=== PATIENT | female | born 1935 | race Caucasian/White ===

== ENCOUNTER 2023-03-02 07:04 | Day surgery (SDC) | payer BC ==
[~2023-03-02] VITALS: Ht 154.9 cm; Wt 98.9 kg
[~2023-03-02 07:04] MED LIST: ACETAMINOPHEN 500 MG TABLET PO ONE; CEFAZOLIN SOD 2 GM in D5W 50 ML IV ONE; CELECOXIB 200 MG CAPSULE PO ONE; GABAPENTIN 400 MG CAPSULE PO ONE; ONDANSETRON 4 MG ODT TAB PO ONE; SCOPOLAMINE HYDROBROMIDE 1 MG PATCH .72 H (TRANSDERM-SCOP) TD ONE; VANCOMYCIN HCL 1,500 MG in NS 250 ML IV ONE; oxyCODONE HCL 10 MG TAB.ER.12H PO ONE
[2023-03-02] MEDS ORDERED: ACETAMINOPHEN 500 MG TABLET ONE (07:30)
[2023-03-02] MEDS ORDERED: SCOPOLAMINE HYDROBROMIDE 1 MG PATCH .72 H (TRANSDERM-SCOP) TD ONE (07:31)
[2023-03-02] MEDS ORDERED: CELECOXIB 200 MG CAPSULE ONE (07:37)
[2023-03-02] MEDS ORDERED: oxyCODONE HCL 10 MG TAB.ER.12H PO ONE (08:37)
[2023-03-02] MEDS ORDERED: WATER FOR IRRIGATION,STERILE 1,000 ML IRRIG.SOLN IR ONE (10:28)
[2023-03-02] MEDS ORDERED: PROPOFOL 200MG/ 20ML VIAL (DIPRIVAN) IV ONE (10:28)
[2023-03-02] MEDS ORDERED: ONDANSETRON HCL 4 MG/2 ML VIAL ONE (10:28)
[2023-03-02] MEDS ORDERED: EPINEPHrine HCL 1 MG/ML VIAL ONE (10:28)
[2023-03-02] MEDS ORDERED: LR 1,000 ML IV.SOLN IV ONE (10:28)
[2023-03-02] MEDS ORDERED: VANCOMYCIN HCL 1000 MG/VIAL IV ONE (10:28)
[2023-03-02] MEDS ORDERED: POLYMYXIN B SULFATE 500,000 UNITS VIAL ONE (10:28)
[2023-03-02] MEDS ORDERED: SEVOFLURANE 15 MIN GAS INH ONE (10:28)
[2023-03-02] MEDS ORDERED: NS IRRIG SOLN 5000 ML IR ONE (10:28)
[2023-03-02] MEDS ORDERED: NS IRRIG SOLN 1000 ML IR ONE (10:28)
[2023-03-02] MEDS ORDERED: TRANEXAMIC ACID 1,000 MG/10 ML VIAL ONE (10:28)
[2023-03-02] MEDS ORDERED: ROPIVACAINE HCL/PF 5 MG/ML 0.5% 30 ML VIAL ONE (10:28)
[2023-03-02] MEDS ORDERED: fentaNYL CITRATE/PF 100 MCG/2 ML AMP ONE (11:03)
[2023-03-02] MEDS ORDERED: fentaNYL CITRATE/PF 100 MCG/2 ML AMP IVP PRN ×2 (12:00)
[2023-03-02] MEDS ORDERED: hydrALAZINE HCL 20 MG/ML VIAL IV PRN (12:00)
[2023-03-02] MEDS ORDERED: ONDANSETRON HCL 4 MG/2 ML VIAL IVP PRN ×2 (12:00→14:00)
[2023-03-02] MEDS ORDERED: HYDROmorphone 1 MG/ML INJ. CARTRIDGE IVP PRN (12:00)
[2023-03-02] MEDS ORDERED: LYR25 PO (12:22)
[2023-03-02] MEDS ORDERED: TRAM50TA2 PO (12:22)
[2023-03-02] MEDS ORDERED: LIP20 PO (12:22)
[2023-03-02] MEDS ORDERED: METO25TA3 PO (12:22)
[2023-03-02] MEDS ORDERED: HYDROcodone/ACETAMIN 5-325 MG TAB (NORCO/ VICODIN) PO PRN (14:00)
[2023-03-02] MEDS ORDERED: HYDROcodone/ACETAMIN 7.5-325 MG TAB PO PRN (14:00)
[2023-03-02] MEDS ORDERED: CEFAZOLIN 1 GM IVPB PREMIX 50 ML IV SCH (15:00)
[2023-03-02 15:26] VITALS: BP_SYST 134
== END 2023-03-02 17:30 | disposition home or self-care (01) ==
LOC: SDS 07:04 → SMU 07:08 → EDSTATUS 07:30 → SDS 17:30
PROVIDERS: ATTEND Orthopaedic Surgery
DX: M17.12 Unilateral primary osteoarthritis, left knee (principal); M79.7 Fibromyalgia; I10 Essential (primary) hypertension; M81.0 Age-related osteoporosis without current pathological fracture; E78.5 Hyperlipidemia, unspecified; Z86.73 Personal history of transient ischemic attack (TIA), and cerebral infarction without residual deficits; Z79.899 Other long term (current) drug therapy
CPT/HCPCS: 27447; 97162; 64447; 93005; 86886; 86900; 86901; 36415; 73560; 97110; 97530; 97116; 88305; 88311; Q0162; J3370 ×2; J0690 ×2; J0171; J2405; J2704; J3010; J3490; J7060; J7120; J7050; A4649; C1713 ×2; C1776